=== PATIENT | male | born 1950 | race Caucasian/White ===

== ENCOUNTER 2017-10-19 05:53 | Day surgery (SDC) | payer OTHER ==
[2017-10-19] MEDS ORDERED: ceFAZolin 2 GM/SWFI 2 GM/20 ML SYR IVP ONE (06:09)
[2017-10-19] MEDS ORDERED: LIDOCAINE 1% 2 ML INJ ID PRN (06:09)
[2017-10-19] MEDS ORDERED: LR 1,000 ML IV ONE (06:09)
[2017-10-19] MEDS ORDERED: ceFAZolin 2 GM/DEXTROSE 100 ML IV ONE (06:10)
--- NOTE | 2017-10-19 06:54 | PDANEPAE ---
ANE Past Medical History - Cardiovascular History Hx Hypertension: No Hx Arrhythmias: No Hx Chest Pain: No Hx Coronary Artery / Peripheral Vascular Disease: No Hx CHF / Valvular Disease: No Hx Palpitations: No - Pulmonary History Hx COPD: No Hx Asthma/Reactive Airway Disease: No Hx Recent Upper Respiratory Infection: No Hx Oxygen in Use at Home: No Hx Sleep Apnea: No Sleep Apnea Screening Result - Last Documented: Negative - Neurologic History Hx Cerebrovascular Accident: No Hx Seizures: No Hx Dementia: No - Endocrine History Hx Diabetes: No Hypothyroid: No Hyperthyroid: No Obesity: yes, mild - Renal History Hx Renal Disorders: No - Liver History Hx Hepatic Disorders: Yes Hepatic History Comment: LIVER GOT DISEASE IN [facility] FAMILY - Neurological & Psychiatric Hx Hx Neurological and Psychiatric Disorders: No - Cancer History Hx Cancer: No - Congenital Disorder History Hx Congenital Disorders: No - GI History GERD: no Hx Gastrointestinal Disorders: No - Other Health History Other Health History: PSORIASIS. PSORIATIC ARTHRITIS - Chronic Pain History Chronic Pain: Yes (RT SIDE OF ABD) - Surgical History Prior Surgeries: LIVER TRANSPLANT 06/23/06. RT ANKLE REMVL BONE CHIP. UMBILICAL HERNIA 2007 ANE Review of Systems Review of Systems: - Exercise capacity Exercise capacity: >=4 METS METS (RN): 4 METS ANE Patient History - Allergies Allergies/Adverse Reactions: No Known Allergies Allergy (Verified 10/19/17 06:16) - Home Medications Home Medications: Ibuprofen 10/18/17 [Last Taken 10/18/17] Sirolimus BID 10/18/17 [Last Taken 10/18/17] Tacrolimus DAILY 10/18/17 [Last Taken 10/18/17] - NPO status NPO Since - Liquids (Date): 10/18/17 NPO Since - Liquids (Time): 22:00 NPO Since - Solids (Date): 10/18/17 NPO Since - Solids (Time): 20:00 - Anes Hx Anes Hx: no prior problems - Smoking Hx Smoking Status: Never smoked - Alcohol Use Alcohol Use: Rarely - Family Anes Hx Family Anes Hx: neg - N/A Family Hx Anesthesia Complications: NONE ANE Labs/Vital Signs - Vital Signs Blood Pressure: 140/85 Heart Rate: 62 Respiratory Rate: 15 O2 Sat (%): 98 Height: 177.8 cm Weight: 94.801 kg ANE Physical Exam - Airway Neck exam: FROM Mallampati Score: Class 3 Mouth exam: normal dental/mouth exam - Pulmonary Pulmonary: no respiratory distress, no rales or rhonchi, clear to auscultation - Cardiovascular Cardiovascular: regular rate and rhythym, systolic murmur - ASA Status ASA Status: II ANE Anesthesia Plan Anesthesia Plan: general endotracheal anesthesia Total IV Anesthesia: No
[2017-10-19] MEDS ORDERED: BUPIVACAINE 0.25% 30 ML SDV ONE (06:56)
[2017-10-19] MEDS ORDERED: PROPOFOL 200 MG/20 ML VIAL ONE ×2 (07:17→07:38)
[2017-10-19] MEDS ORDERED: fentaNYL 100 MCG/2 ML INJ ONE ×3 (07:17→08:03)
[2017-10-19] MEDS ORDERED: DEXAMETHASONE 4 MG/ML VIAL ONE (07:18)
[2017-10-19] MEDS ORDERED: ROCURONIUM 50 MG/5 ML VIAL ONE ×3 (07:18→07:37)
[2017-10-19] MEDS ORDERED: ONDANSETRON 4 MG/2 ML VIAL ONE ×2 (07:18→07:38)
[2017-10-19] MEDS ORDERED: KETOROLAC 30 MG/1 ML SDV ONE (07:18)
[2017-10-19] MEDS ORDERED: LIDOCAINE 2% 5 ML SDV ONE ×2 (07:18→07:37)
--- NOTE | 2017-10-19 07:22 | PDHPUP ---
History & Physical Update H&P update statement: This history and physical update is based on an assessment of the patient which was completed after admission or registration (within 24 hours), but prior to the surgery/procedure. H&P update: H&P reviewed & patient examined, no change in patient's condition since H&P completed
[2017-10-19] MEDS ORDERED: PHENYLEPHRINE HCL 100 MCG/ML SYR ONE (07:53)
[2017-10-19] MEDS ORDERED: PHENYLEPHRINE HCL 100 MCG/ML SYR IVP PRN (08:06)
[2017-10-19] MEDS ORDERED: LR 500 ML IV PRN (08:06)
[2017-10-19] MEDS ORDERED: ONDANSETRON 4 MG/2 ML VIAL IVP PRN (08:06)
[2017-10-19] MEDS ORDERED: fentaNYL 100 MCG/2 ML INJ IVP PRN (08:06)
[2017-10-19] MEDS ORDERED: oxyCODONE IR 5 MG TAB PO PRN (08:06)
[2017-10-19] MEDS ORDERED: HYDROCODONE/APAP 5/325 TAB PO PRN (08:06)
[2017-10-19] MEDS ORDERED: PROMETHAZINE HCL 25 MG/ML INJ IVP PRN (08:06)
[2017-10-19] MEDS ORDERED: NALOXONE HCL 0.4 MG/ML INJ IVP PRN (08:06)
[2017-10-19] MEDS ORDERED: HYDROmorphONE/DILAUDID 1 MG/ML INJ IVP PRN (08:06)
[2017-10-19] MEDS ORDERED: ACETAMINOPHEN 500 MG TAB PO PRN (08:06)
[2017-10-19] MEDS ORDERED: SUGAMMADEX SODIUM 200 MG/2 ML VIAL IVP ONE (08:18)
--- NOTE | 2017-10-19 08:29 | POSTOPPROG ---
Post Op Note Date of Operation: 10/19/17 Surgeon: Alexandru Shirley General Forecaster: Kaila Anesthesiologist: Suzette Anesthesia: GET(General Endotracheal) Pre-op Diagnosis: Right subcostal abscess Post-op Diagnosis: Right subcostal suture abscess Indication: Pain, redness Procedure: Right subcostal I&D Findings: One old infected suture from liver tx surgery 11 yrs ago Inf/Abcess present in the surg proc area at time of surgery?: Yes Depth: Deep Incisional (Fascial) EBL: Minimal Specimen(s): Tissue and suture for pathology Swab for culture
--- NOTE | 2017-10-19 09:43 | POSTANESTH ---
Post Anesthetic Evaluation Cardiovascular Status: Normal, Stable Respiratory Status: Normal, Stable Level of Consciousness/Mental Status: Can Participate in Eval Pain Control: Adequate, Prn Tx Ordered Nausea/Vomiting Control: Adequate, Prn Tx Ordered Complications Possibly Related to Anesthesia: None Noted
[2017-10-19 10:58] VITALS: BP 117/56
== END 2017-10-19 10:20 | disposition home or self-care (01) ==
LOC: FSGY 05:53
PROVIDERS: ATTEND Surgery
PROC: 0J980ZZ Drainage of Abdomen Subcutaneous Tissue and Fascia, Open Approach (ICD-10-PCS; principal; 2017-10-19 07:15)
DX: T81.4XXA Infection following a procedure, initial encounter (principal); B95.62 Methicillin resistant Staphylococcus aureus infection as the cause of diseases classified elsewhere; Y81.3 Surgical instruments, materials and general- and plastic-surgery devices (including sutures) associated with adverse incidents; L76.82 Other postprocedural complications of skin and subcutaneous tissue; Z94.0 Kidney transplant status
CPT/HCPCS: J0690; J1100; J1885; J2370; J2405; J2704; J3010

== ENCOUNTER → 2018-06-24 | Outpatient (CLI) | payer OTHER | LOC: BHFA 09:15 | PROVIDERS: ATTEND Internal Medicine Cardiovascular Disease | DX: R01.1 Cardiac murmur, unspecified (principal) ==